=== PATIENT | female | born 1955 | race Caucasian/White ===

== ENCOUNTER 2022-08-19 05:30 | Inpatient (IN) | payer OTHER ==
[~2022-08-19] VITALS: Ht 157.5 cm; Wt 70.3 kg
[~2022-08-19 05:30] MED LIST: LEVO-T75 MCG PO; LOSARTAN POTAS100 MG PO
== END 2022-08-20 13:32 | disposition home or self-care (01) | DRG 627 ==
LOC: CIR.AMB 05:30 → O/R 12:22 → SURG 13:14
PROVIDERS: ADMIT Otolaryngology; ATTEND Otolaryngology
PROC: 07T10ZZ Resection of Right Neck Lymphatic, Open Approach (ICD-10-PCS; 2022-08-19)
PROC: 0GTK0ZZ Resection of Thyroid Gland, Open Approach (ICD-10-PCS; principal; 2022-08-19 07:00)
DX: C73 Malignant neoplasm of thyroid gland (principal); Z20.822 Contact with and (suspected) exposure to COVID-19

== ENCOUNTER 2022-10-26 13:12 | Outpatient (CLI) | payer OTHER | END 2022-10-26 13:16 | disposition home or self-care (01) | LOC: NUCLEAR 13:12 | PROVIDERS: ATTEND Internal Medicine Sports Medicine | DX: C73 Malignant neoplasm of thyroid gland (principal); E89.0 Postprocedural hypothyroidism | CPT/HCPCS: 79005; A9517 ==

== ENCOUNTER → 2022-10-31 | Outpatient (CLI) | payer OTHER | END | disposition home or self-care (01) | LOC: NUCLEAR 12:20 | PROVIDERS: ATTEND Internal Medicine Sports Medicine | DX: C73 Malignant neoplasm of thyroid gland (principal); E89.0 Postprocedural hypothyroidism | CPT/HCPCS: 78015; A9531 ==

== ENCOUNTER 2023-11-20 12:10 | Outpatient (CLI) | payer OTHER | END 2023-11-20 12:12 | disposition home or self-care (01) | LOC: NUCLEAR 12:10 | PROVIDERS: ATTEND Internal Medicine Sports Medicine | DX: C73 Malignant neoplasm of thyroid gland (principal) | CPT/HCPCS: 78018; 78020; A9528 ==

== ENCOUNTER 2024-12-27 09:56 | Outpatient (CLI) | payer OTHER | END 2024-12-27 09:57 | disposition home or self-care (01) | LOC: NUCLEAR 09:56 | PROVIDERS: ATTEND Internal Medicine Sports Medicine | DX: C73 Malignant neoplasm of thyroid gland (principal) | CPT/HCPCS: 78018; A9528 ==